=== PATIENT | female | born 1965 | race American Indian/Alaskan Native ===

== ENCOUNTER 2016-03-22 15:37 | Outpatient (CLI) | payer BC ==
--- NOTE | 2016-03-23 14:21 | Mammography Report ---
BILATERAL DIGITAL SCREENING MAMMOGRAM with CAD: 03/22/16 15:37:00 CLINICAL: Routine screening. COMPARISON:01/12/15 FINDINGS: The breasts are predominantly fatty. A low-density right inner circumscribed density is new and requires additional imaging.No architectural distortion or suspicious calcifications.The left breast is negative. IMPRESSION: Right asymmetry requiring further workup. BI-RADS CATEGORY: 0 -- Additional Imaging Evaluation Required RECOMMENDATION: Recall for right spot compression views and right breast ultrasound. ACR BI-RADS MAMMOGRAPHIC CODES: 0 = Needs additional imaging evaluation; 1 = Negative; 2 = Benign; 3 = Probably benign; 4 = Suspicious; 5 = Malignant; 6 = Known biopsy-proven malignancy COMMENT: 1. Dense breast tissue, i.e., adenosis, fibrocystic changes, etc., may obscure an underlying neoplasm. 2. Approximately 10% of cancers are not detected with mammography. 3. A negative mammography report should not delay biopsy if a clinically suspicious mass is present. COMMENT: Patient follow-up letters are generated via our [employer] application.
== END 2016-03-22 15:38 | disposition home or self-care (01) ==
LOC: SPVWC 15:37
PROVIDERS: ATTEND Internal Medicine
DX: Z12.31 Encounter for screening mammogram for malignant neoplasm of breast (principal)
CPT/HCPCS: 77067; G0202

== ENCOUNTER 2016-04-04 14:21 | Outpatient (CLI) | payer BC ==
--- NOTE | 2016-04-04 15:50 | Mammography Report ---
RIGHT DIGITAL DIAGNOSTIC MAMMOGRAM and RIGHT BREAST ULTRASOUND: 04/04/16 14:21:00 CLINICAL: Recalled for asymmetry. COMPARISON:03/22/16 screening FINDINGS: Lateralmedial and spot compression MLO and CC views were performed. Complete effacement of the asymmetry on spot views but a persistent low density asymmetry is identified on the lateral view. Ultrasound of the inner right breast was performed and demonstrated a partially collapsed cyst at 2 o'clock 4 cm from the nipple. It measures 9 x 2 x 7 mm and correlates with the mammographic asymmetry. IMPRESSION: A benign cyst at 2 o'clock 4 cm from the nipple.No suspicious finding. BI-RADS CATEGORY: 2 - - Benign RECOMMENDATION: Routine mammographic screening in one year. ACR BI-RADS MAMMOGRAPHIC CODES: 0 = Needs additional imaging evaluation; 1 = Negative; 2 = Benign; 3 = Probably benign; 4 = Suspicious; 5 = Malignant; 6 = Known biopsy-proven malignancy COMMENT: 1. Dense breast tissue, i.e., adenosis, fibrocystic changes, etc., may obscure an underlying neoplasm. 2. Approximately 10% of cancers are not detected with mammography. 3. A negative mammography report should not delay biopsy if a clinically suspicious mass is present. COMMENT: Patient follow-up letters are generated via our [employer] application.
== END 2016-04-04 14:22 | disposition home or self-care (01) ==
LOC: SPVWC 14:21
PROVIDERS: ATTEND Internal Medicine
DX: N60.01 Solitary cyst of right breast (principal)
CPT/HCPCS: 76642; G0206

== ENCOUNTER 2017-06-28 14:43 | Outpatient (CLI) | payer BC ==
--- NOTE | 2017-07-04 12:53 | Mammography Report ---
BILATERAL MAMMOGRAM: FINDINGS: The breasts are almost entirely fat (<25% glandular). No mass, distortion, suspicious calcification, or skin change is seen. No interval change when compared to prior exams in 2017. CAD was utilized. IMPRESSION: Negative mammogram. There is no mammographic evidence of malignancy. RECOMMENDATION: Follow-up per ACS guidelines. BI-RADS CATEGORY: 1 = Negative ACR BI-RADS MAMMOGRAPHIC CODES: 0 = Needs additional imaging evaluation; 1 = Negative; 2 = Benign; 3 = Probably benign; 4 = Suspicious; 5 = Malignant; 6 = Known biopsy-proven malignancy COMMENT: 1. Dense breast tissue, i.e., adenosis, fibrocystic changes, etc., may obscure an underlying neoplasm. 2. Approximately 10% of cancers are not detected with mammography. 3. A negative mammography report should not delay biopsy if a clinically suspicious mass is present. COMMENT: Patient follow-up letters are generated in [employer].
== END 2017-06-28 14:44 | disposition home or self-care (01) ==
LOC: SPVWC 14:43
PROVIDERS: ATTEND Internal Medicine
DX: Z12.31 Encounter for screening mammogram for malignant neoplasm of breast (principal)
CPT/HCPCS: 77067

== ENCOUNTER 2018-08-20 14:34 | Outpatient (CLI) | payer BC ==
--- NOTE | 2018-08-20 16:08 | Mammography Report ---
BILATERAL DIGITAL SCREENING MAMMOGRAM WITH CAD INDICATION: Routine screening mammography. TECHNIQUE: Digital bilateral 2D mammography was obtained in the craniocaudal and mediolateral obliq ue projections. This examination was interpreted with the benefit of Computer-Aided Detection analysi s. COMPARISON: 06/28/2017 FINDINGS: Breast Density: The breasts are almost entirely fatty. There is no evidence of dominant mass, suspicious calcifications or architectural distortion in eith er breast. IMPRESSION:No mammographic evidence of malignancy. BI-RADS Category 1: Negative. No mammographic evidence of malignancy. Recommend routine screening m ammography in one year. A "normal" or negative report should not discourage follow up or biopsy of a clinically significant f inding. A written summary of these findings will be mailed to the patient. The patient will be entered into a mammography reporting system which will generate a reminder letter for the patient's next appointmen t at the appropriate interval. The [employer] recommends yearly mammograms starting at age 40 and continuing as l chavez as a woman is in good health. Breast MRI is recommended for women with an approximate 20-25% or greater lifetime risk of breast cancer, including women with a strong family history of breast or ova raiza cancer or who have been treated for Hodgkin's disease. Signer Name: Prem Puga MD Signed: 08/20/2018 4:04 PM Workstation Name: [id number]
--- NOTE | 2018-08-20 16:15 | Ultrasound Report ---
ABDOMINAL ULTRASOUND LIMITED (RIGHT UPPER QUADRANT) HISTORY: Firm palpable area right upper quadrant. History of gastric bypass. COMPARISON: None. TECHNIQUE: Multiple real-time ultrasonographic grayscale images were obtained of the right upper abdo men. FINDINGS: Pancreas: Partially obscured by poor acoustic windows. Visualized portions without significant abnor mality. Liver: Mild diffuse increased echogenicity. The right lobe measures 14.5 cm in length. Gallbladder: No stones, wall thickening or pericholecystic fluid. Common bile duct: 2.1 mm. Right kidney: No significant abnormality. No hydronephrosis. Kidney measures Kidney measures 10.8 x 3.8 x 4.6 cm. Additional findings: None. The technologist felt no mass or lump where the patient described an abnor mality. The abdominal wall in this area is unremarkable. IMPRESSION: 1. Mild hepatic steatosis. 2. No cholelithiasis. 3. No mass identified. Signer Name: Prem Puga MD Signed: 08/20/2018 4:10 PM Workstation Name: [id number]
== END 2018-08-20 14:35 | disposition home or self-care (01) ==
LOC: SPVWC 14:34
PROVIDERS: ATTEND Internal Medicine
DX: Z12.31 Encounter for screening mammogram for malignant neoplasm of breast (principal); K76.0 Fatty (change of) liver, not elsewhere classified
CPT/HCPCS: 76705; 77067

== ENCOUNTER 2019-08-26 11:23 | Outpatient (CLI) | payer BC ==
--- NOTE | 2019-08-26 13:37 | Mammography Report ---
DIGITAL SCREENING MAMMOGRAM WITH CAD, 08/26/2019 INDICATION: Routine screening mammography. TECHNIQUE: Digital bilateral 2D mammography was obtained in the craniocaudal and mediolateral obliq ue projections. This examination was interpreted with the benefit of Computer-Aided Detection analysi s. COMPARISON: 08/20/2018, 06/28/2017, 04/04/2016 FINDINGS: Breast Density: The breasts are almost entirely fatty. There is no evidence of dominant mass, suspicious calcifications or architectural distortion in eithe r breast. Intramammary lymph node is again noted in the right breast. IMPRESSION: Follow up recommendation: Routine yearly BI-RADS Category 2: Benign. A "normal" or negative report should not discourage follow up or biopsy of a clinically significant f inding. A written summary of these findings will be mailed to the patient. The patient will be entered into a mammography reporting system which will generate a reminder letter for the patient's next appointmen t at the appropriate interval. The [employer] recommends yearly mammograms starting at age 40 and continuing as l chavez as a woman is in good health. Breast MRI is recommended for women with an approximate 20-25% or greater lifetime risk of breast cancer, including women with a strong family history of breast or ova raiza cancer or who have been treated for Hodgkin's disease. Signer Name: Halle Mathew MD Signed: 08/26/2019 1:32 PM Workstation Name: [email or web address]
== END 2019-08-26 11:24 | disposition home or self-care (01) ==
LOC: SPVWC 11:23
PROVIDERS: ATTEND Obstetrics & Gynecology
DX: Z12.31 Encounter for screening mammogram for malignant neoplasm of breast (principal); N64.89 Other specified disorders of breast
CPT/HCPCS: 77067

== ENCOUNTER 2020-08-26 10:02 | Outpatient (CLI) | payer BC ==
--- NOTE | 2020-08-26 17:46 | Mammography Report ---
DIGITAL SCREENING MAMMOGRAM WITH CAD, 08/26/2020 CLINICAL INFORMATION / INDICATION: Routine screening mammography. SCREENING MAMMO Z12.31 TECHNIQUE: Digital bilateral 2D mammography was obtained in the craniocaudal and mediolateral obliqu e projections. This examination was interpreted with the benefit of Computer-Aided Detection analysis . COMPARISON: 08/26/19, 08/20/18 FINDINGS: Breast Density: The breasts are almost entirely fatty. No dominant mass, suspicious calcifications, or architectural distortion in either breast. Right breast intramammary lymph node is stable. IMPRESSION: No mammographic evidence of malignancy. Follow up recommendation: Routine yearly BI-RADS Category 2: Benign. A "normal" or negative report should not discourage follow up or biopsy of a clinically significant f inding. A written summary of these findings will be mailed to the patient. The patient will be entered into a mammography reporting system which will generate a reminder letter for the patient's next appointmen t at the appropriate interval. The [employer] recommends yearly mammograms starting at age 40 and continuing as l chavez as a woman is in good health. Breast MRI is recommended for women with an approximate 20-25% or greater lifetime risk of breast cancer, including women with a strong family history of breast or ova raiza cancer or who have been treated for Hodgkin's disease. Signer Name: Julia Petty MD Signed: 08/26/2020 5:42 PM Workstation Name: [email or web address]
== END 2020-08-26 10:03 | disposition home or self-care (01) ==
LOC: SPVWC 10:02
PROVIDERS: ATTEND Internal Medicine
DX: Z12.31 Encounter for screening mammogram for malignant neoplasm of breast (principal)
CPT/HCPCS: 77067